=== PATIENT | male | born 1945 | race Caucasian/White ===

== ENCOUNTER 2017-01-29 07:45 | Day surgery (SDC) | payer MEDICARE, OTHER ==
[~2017-01-29] VITALS: Ht 182.9 cm; Wt 122.5 kg
[~2017-01-29 07:45] MED LIST: 0.9% Sodium Chloride 1,000 ML IV PRN; ESOM20CA28 PO; FLUT15.88 NS; HYDR12.5 PO; LISI30TA5 PO; MECL-114 PO; PANT40TA3 PO; Sodium Chloride LOK Flush 10 mL Syringe IV PRN; TAMS0.4C98 PO; fentaNYL-PF 50 mCg/mL 2 mL Inj IVPUSH PRN
[2017-01-29 08:04] VITALS: BP 142/95; PULSE 90; RESP 16; O2SAT 97
[2017-01-29 09:21] VITALS: BP 131/75; PULSE 71; RESP 14; O2SAT 98
[2017-01-29 09:30] VITALS: BP 118/67; PULSE 87; RESP 14; O2SAT 97
--- NOTE | 2017-01-29 10:12 | ENDO ---
[address] [address] ENDOSCOPY PROCEDURE PATIENT: CHARLES LEON : 1945 MR#: [id number] ADMIT: 01/29/2017 JOB ID: [id number] PROCEDURE: Colonoscopy. INDICATION: Screening. ASA CLASSIFICATION: 2. MALLAMPATI SCORE: 2. MEDICATIONS: Versed 4 mg and fentanyl 100 mcg. INSTRUMENT USED: PCF-H180-AL. PREPARATION QUALITY: Fair. PROCEDURE DETAILS: After informed consent was obtained, the patient was brought into the GI suite, where he was placed on oxygen via nasal cannula and monitored with continuous pulse oximeter, telemetry, and blood pressure monitoring. A time-out was performed. Then, he was placed in left lateral decubitus position. Medications were administered for sedation. Digital rectal exam was performed, which was unremarkable. The colonoscope was then inserted into the rectum and advanced under direct visualization to the cecum, which was identified by the presence of the ileocecal valve and appendiceal orifice. Once the cecum was reached, the colonoscope was then withdrawn back into the rectum as the mucosa and lumen were examined. In the rectum, retroflexion was performed. Following retroflexion, remaining air in the rectum was suctioned, and procedure was completed. FINDINGS: 1. Normal exam from rectum to cecum. There was a significant amount of stool debris in the right side of the colon that we were able to suction the majority of. No large lesions seen, however, smaller diminutive polyps may have been missed. 2. Retroflexed views in the rectum revealed moderate-sized internal hemorrhoids. IMPRESSION: Internal hemorrhoids. Otherwise normal exam from rectum to cecum. RECOMMENDATIONS: Repeat colonoscopy in five years, sooner if symptoms dictate. COMPLICATIONS: None. ESTIMATED BLOOD LOSS: 0.
== END 2017-01-29 23:59 | disposition home or self-care (01) ==
LOC: END 07:45
PROVIDERS: ATTEND Internal Medicine Gastroenterology
DX: Z12.11 Encounter for screening for malignant neoplasm of colon (principal); K64.8 Other hemorrhoids; I10 Essential (primary) hypertension; M19.019 Primary osteoarthritis, unspecified shoulder; K21.9 Gastro-esophageal reflux disease without esophagitis; N40.2 Nodular prostate without lower urinary tract symptoms; Z85.828 Personal history of other malignant neoplasm of skin; Z87.891 Personal history of nicotine dependence
CPT/HCPCS: G0121; G0500; J7030